=== PATIENT | female | born 1960 | race Caucasian/White ===

== ENCOUNTER 2016-10-17 18:42 | Emergency (ER) | payer MEDICARE, BC ==
[~2016-10-17] VITALS: Ht 170.2 cm; Wt 80.0 kg
[2016-10-17] MEDS ORDERED: SODIUM CHLORIDE 0.9% FLUSH 5 ML FLUSH IVF PRN (19:15)
[2016-10-17] MEDS ORDERED: MORPHINE SULFATE 4 MG/ML INJ IV PUSH ONE (19:15)
[2016-10-17] MEDS ORDERED: ONDANSETRON HCL 4 MG/2 ML VIAL IVP ONE (19:15)
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
[2016-10-17 20:08] VITALS: BP 174/99; PULSE 80; RESP 20; TEMP 98.3; O2SAT 96
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
[2016-10-17] MEDS ORDERED: TRAM50TA PO (20:37)
[2016-10-17] MEDS ORDERED: IBUP-232 PO (20:37)
[2016-10-17 20:52] LABS: AUTOMATED NEUTROPHIL # 11.7 TH/MM3 (1.8-7.7); BASOPHIL # 0.1 TH/MM3 (0-0.2); BASOPHIL % 0.5 % (0.0-2.0); EOSINOPHIL # 0.1 TH/MM3 (0-0.4); EOSINOPHIL % 0.8 % (0.0-4.0); HEMATOCRIT 37.3 % (35.0-46.0); HEMO FLAGS DIFF FINAL; LYMPH % 12.4 % (9.0-44.0); LYMPHOCYTE # 1.8 TH/MM3 (1.0-4.8); MEAN CELL VOLUME 88.6 FL (80.0-100.0); MEAN CORPUSCULAR HEMOGLOBIN 30.2 PG (27.0-34.0); MONO % 4.9 % (0.0-8.0); NEUT % 81.4 % (16.0-70.0); PLATELET COUNT 315 TH/MM3 (150-450); WHITE BLOOD COUNT 14.3 TH/MM3 (4.0-11.0)
[2016-10-17 21:00] LABS: BLOOD, URINE NEG (NEG); COMMENT (UR) CULT NOT INDICATED; CULTURE IF INDICATED CULT NOT INDICATED; GLUCOSE,URINE NEG (NEG); KETONE, URINE NEG (NEG); MUCUS URINE FEW /lpf (OCC); NITRITE,URINE NEG (NEG); SQUAMOUS EPITHELIAL CELL URINE 6 /hpf (0-5); URINE COLOR YELLOW (YELLW/STRAW)
[2016-10-17 21:14] LABS: BICARBONATE 23.4 MEQ/L (21.0-32.0)
[2016-10-17 21:15] LABS: POTASSIUM 4.7 MEQ/L (3.5-5.1)
[2016-10-17 23:35] VITALS: BP 128/70; PULSE 92; RESP 20; TEMP 98.2; O2SAT 97
[2016-10-18] MEDS ORDERED: CLIN1CAP6 PO (08:32)
== END 2016-10-18 04:43 | disposition home or self-care (01) ==
LOC: NEPA 18:42
DX: S09.90XA Unspecified injury of head, initial encounter (principal); S00.83XA Contusion of other part of head, initial encounter; S00.01XA Abrasion of scalp, initial encounter; Z72.0 Tobacco use; R51 Headache; Y09 Assault by unspecified means; S20.219A Contusion of unspecified front wall of thorax, initial encounter; I10 Essential (primary) hypertension; J01.90 Acute sinusitis, unspecified
CPT/HCPCS: 70450; 70486; 80048; 81001; 85025; 96374; 96375; 99284; J2270; J2405; 71020

== ENCOUNTER 2016-10-18 04:56 | Emergency (ER) | payer MEDICARE ==
[~2016-10-18] VITALS: Ht 170.2 cm; Wt 80.0 kg
[~2016-10-18 04:56] MED LIST: IBUP-232 PO; TRAM50TA PO
[2016-10-18 04:59] VITALS: BP 138/91; PULSE 89; RESP 15; TEMP 98; O2SAT 96
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
[2016-10-18] MEDS ORDERED: ACETAMINOPHEN/HYDROcodone 325 MG/5 MG TAB PO ONE (07:30)
[2016-10-18 07:35] VITALS: BP 140/81; PULSE 76; RESP 17; TEMP 97.8; O2SAT 99
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
[2016-10-18 08:30] VITALS: BP 140/77; RESP 17; TEMP 97.8
[2016-10-18] MEDS ORDERED: CLIN1CAP6 PO (08:32)
== END 2016-10-18 08:30 | disposition home or self-care (01) ==
LOC: NEPE 04:56
DX: S20.219A Contusion of unspecified front wall of thorax, initial encounter (principal); I10 Essential (primary) hypertension; J01.90 Acute sinusitis, unspecified; Z72.0 Tobacco use; Y09 Assault by unspecified means
CPT/HCPCS: 71020; 99284